=== PATIENT | male | born 1965 | race Caucasian/White ===

== ENCOUNTER → 2016-07-24 | Outpatient (CLI) | payer OTHER ==
--- NOTE | ~2016-07-24 | MR84 ---
[facility] A Service of [facility] & [facility] RADIOLOGY TEXT RESULTS PATIENT: KARSON ABERNATHY LOCATION: [facility] : 61 UNIT #: [id number] AGE: [address]: Tim Zarate MD SEX: M ORDER DR: [id number] [place] [id number] O MR#: [id number] Acc #: [id number] NAME: KARSON ABERNATHY : 1965 SEX: M STUDY DATE/TIME: 07/24/2016 11:46 UNIT: [facility] ROOM: STUDY DESCRIPTION: MR Hip Wo Contrast Rt Attending Physician: Tim Zarate M.D. Referring Physician: Tim Zarate M.D. Ordering Physician: Tim Zarate M.D. Primary Care Physician: Neil Vallejo II, M.D. MRI CENTER REPORT This report is preliminary unless electronic signature is present. EXAM MRI of the right hip and pelvis HISTORY Right hip pain getting worse, states had labral repair 05/14/2016 with persistent hip pain. COMPARISON MR arthrogram from [facility] [place] 10/21/2015. FINDINGS Multiplanar multiecho imaging was performed of the right hip and pelvis utilizing a high field magnet and dedicated protocol. Bone structure and alignment appears normal. No focal marrow edema. There is a prominent fluid collection along the superior lateral aspect of the right hip joint which may be related to possible labral debridement and could represent postsurgical change from recent labral surgery, possibly related to access to the hip joint. No evidence of recurrent labral tear on this non-arthrographic MRI. Articular cartilage appears maintained. Pelvic and proximal thigh musculature appears normal. Normal tendinous attachments about the hips and pelvis. Internal pelvic structures are unremarkable. IMPRESSION Prominent fluid collection deep to the anterior joint capsule in the anterosuperior aspect of the right hip joint. I suspect this is related to the patient's recent hip surgery with debridement of the labrum. No convincing evidence of recurrent labral tear or paralabral cyst. This area of prominent fluid measures up to 3 cm and some heterogeneity of the signal could reflect some adjacent synovitis. [facility]. [facility] A Service of [facility] & [facility] RADIOLOGY TEXT RESULTS PATIENT: KARSON ABERNATHY LOCATION: [facility] : 61 UNIT #: [id number] AGE: [address]: Tim Zarate MD SEX: M ORDER DR: Dictated by... Meghan Garza M.D. THIS IS AN ELECTRONICALLY VERIFIED REPORT Meghan Garza M.D. at 07/25/2016 3:42 PM DYAN/abel TD: 07/25/2016 12:01 JOB #: [id number] MRI CENTER REPORT Page 1 of 1
== END | disposition home or self-care (01) ==
LOC: SMRI 11:20
DX: M25.551 Pain in right hip (principal); Z98.890 Other specified postprocedural states
CPT/HCPCS: 73721